=== PATIENT | male | born 1975 | race African-American/Black ===

== ENCOUNTER 2017-08-13 20:40 | Inpatient (IN) | payer OTHER ==
[~2017-08-13] VITALS: Ht 195.6 cm; Wt 133.5 kg
[2017-08-13 20:46] VITALS: BP 148/64; PULSE 81; RESP 18; TEMP 98.4; O2SAT 99
[2017-08-13] MEDS ORDERED: FLUP10TA PO (20:54)
[2017-08-13 20:59] VITALS: PULSE 70; RESP 18; O2SAT 98
[2017-08-13] MEDS ORDERED: SODIUM CHLORIDE 0.9% FLUSH 10 ML FLUSH IVF PRN (21:00)
--- NOTE | 2017-08-13 21:26 | PD ---
HPI Chief Complaint: Cardiac Complaint Time Seen by Provider: 21:08 Travel History International Travel<30 days: No Contact w/Intl Traveler<30days: No Traveled to known affect area: No History of Present Illness HPI Patient comes emergency department complaining of left-sided chest pain described as pressure-like in nature without radiation that began approximately 30 minutes prior to arrival. Patient denies anything making symptoms better. Touching his chest makes the pain worse. Patient denies any trauma, shortness of breath, diaphoresis, nausea, vomiting, back pain, numbness or tingling wear, headache, dizziness, or neck pain. Patient denies a cardiac history or ever having a stress test. Patient received 324 mg of aspirin and 2 sublingual nitro in route by EMS without improvement of symptoms. Patient also complaining of having suicidal ideations. Patient reports history of suicide attempt by ingesting pills in the past. Patient states that the voices in his head telling him to kill himself and his plan was to run into traffic. Patient states that he is on medication for this however the voices still come and go from time to time. Denies any homicidal ideations. Denies anything making symptoms worse. Patient reports he is visiting from out of town and his psychiatrist is in another county. [facility] Past Medical History Schizophrenia: Yes Past Surgical History Surgical History: No Previous Surgery Social History Alcohol Use: No Tobacco Use: Yes (1/2 PPD) Substance Use: No Allergies-Medications (Allergen,Severity, Reaction): Coded Allergies: iodine (Verified Allergy, Severe, Anaphylaxis, 08/13/17) Uncoded Allergies: SEAFOOD (Allergy, Severe, Anaphylaxis, 08/13/17) Reported Meds & Prescriptions Reported Meds & Active Scripts Active Reported Fluphenazine (Fluphenazine HCl) 10 Mg Tab 20 Mg PO BID Review of Systems Except as stated in HPI: all other systems reviewed are Neg Physical Exam Narrative GENERAL: Well-developed, overly nourished, in no acute distress, and non-ill appearing. SKIN: Focused skin assessment warm and dry. HEAD: Atraumatic. Normocephalic. EYES: Pupils equal and round. EOMI. No scleral icterus. No injection or drainage. ENT: No nasal bleeding or discharge. Mucous membranes pink and moist. NECK: Trachea midline. No JVD. Supple. No nuclear rigidity. CARDIOVASCULAR: Regular rate and rhythm. No murmur appreciated. RESPIRATORY: No accessory muscle use. No respiratory distress. Clear to auscultation. Breath sounds equal bilaterally. Patient reports tenderness palpation over left anterior chest wall. MUSCULOSKELETAL: No obvious deformities. No clubbing. No cyanosis. No edema. Full range of motion. NEUROLOGICAL: Awake and alert. No obvious cranial nerve deficits. Motor grossly within normal limits. Normal speech. PSYCHIATRIC: Appropriate mood and affect. Data Data Last Documented VS Vital Signs Date Time Temp Pulse Resp B/P (MAP) Pulse Ox O2 Delivery O2 Flow Rate FiO2 08/13/17 20:59 70 18 98 Room Air 08/13/17 20:46 98.4 148/64 (92) Orders Orders Ckmb (Isoenzyme) Profile (08/13/17 20:54) Complete Blood Count With Diff (08/13/17 20:54) Comprehensive Metabolic Panel (08/13/17 20:54) Magnesium (Mg) (08/13/17 20:54) Prothrombin Time / Inr (Pt) (08/13/17 20:54) Act Partial Throm Time (Ptt) (08/13/17 20:54) Troponin I (08/13/17 20:54) Lipase (08/13/17 20:54) Chest, Single Ap (08/13/17 20:54) Ecg Monitoring (08/13/17 20:54) Iv Access Insert/Monitor (08/13/17 20:54) Oximetry (08/13/17 20:54) Oxygen Administration (08/13/17 20:54) Sodium Chloride 0.9% Flush (Ns Flush) (08/13/17 21:00) Psych Screen (08/13/17 21:08) Drug Screen, Random Urine (08/13/17 21:08) Salicylates (Aspirin) (08/13/17 21:08) Tylenol (Acetaminophen) (08/13/17 21:00) Alcohol (Ethanol) (08/13/17 21:00) Thyroid Stimulating Hormone (08/13/17 21:00) CKMB (08/13/17 21:00) CKMB% (08/13/17 21:00) Labs Laboratory Tests Test 08/13/17 21:00 White Blood Count 9.5 TH/MM3 Red Blood Count 3.99 MIL/MM3 Hemoglobin 11.5 GM/DL Hematocrit 34.0 % Mean Corpuscular Volume 85.2 FL Mean Corpuscular Hemoglobin 28.7 PG Mean Corpuscular Hemoglobin Concent 33.7 % Red Cell Distribution Width 16.6 % Platelet Count 410 TH/MM3 Mean Platelet Volume 8.1 FL Neutrophils (%) (Auto) 42.7 % Lymphocytes (%) (Auto) 45.3 % Monocytes (%) (Auto) 7.0 % Eosinophils (%) (Auto) 4.2 % Basophils (%) (Auto) 0.8 % Neutrophils # (Auto) 4.0 TH/MM3 Lymphocytes # (Auto) 4.3 TH/MM3 Monocytes # (Auto) 0.7 TH/MM3 Eosinophils # (Auto) 0.4 TH/MM3 Basophils # (Auto) 0.1 TH/MM3 CBC Comment DIFF FINAL Differential Comment Prothrombin Time 10.4 SEC Prothromb Time International Ratio 1.0 RATIO Activated Partial Thromboplast Time 26.1 SEC Blood Urea Nitrogen 8 MG/DL Creatinine 0.97 MG/DL Random Glucose 174 MG/DL Total Protein 6.7 GM/DL Albumin 2.9 GM/DL Calcium Level 8.4 MG/DL Magnesium Level 1.6 MG/DL Alkaline Phosphatase 110 U/L Aspartate Amino Transf (AST/SGOT) 16 U/L Alanine Aminotransferase (ALT/SGPT) 22 U/L Total Bilirubin LESS THAN 0.1 MG/DL Sodium Level 142 MEQ/L Potassium Level 3.6 MEQ/L Chloride Level 108 MEQ/L Carbon Dioxide Level 23.0 MEQ/L Anion Gap 11 MEQ/L Estimat Glomerular Filtration Rate 84 ML/MIN Total Creatine Kinase 304 U/L Creatine Kinase MB 2.9 NG/ML Troponin I 0.03 NG/ML Lipase 117 U/L Thyroid Stimulating Hormone 3rd Gen 0.801 uIU/ML Salicylates Level 4.1 MG/DL Acetaminophen Level LESS THAN 2.0 MCG/ML Ethyl Alcohol Level LESS THAN 3 MG/DL MDM Medical Decision Making Medical Screen Exam Complete: Yes Emergency Medical Condition: Yes Interpretation(s) EKG reviewed by Dr. Dia shows sinus rhythm ventricular rate 75. No STEMI. Differential Diagnosis Atypical chest pain, acute coronary syndrome, arrhythmia, musculoskeletal pain, pleurisy, homicidal, suicidal, acute psychosis, metabolic disturbance, pneumonia , pneumothorax Narrative Course Patient seen and examined. Initial laboratory radiological studies were ordered reviewed with the exception of urine drug screen has not been collected yet. Patient signed out to Dr. Dia at the end of my shift pending repeat troponin for final medical clearance. Please see his documentation for final diagnosis and disposition. Ernst Odonnell Aug 13, 2017 21:26
[2017-08-13 21:33] LABS: BASOPHIL # 0.1 TH/MM3 (0-0.2); BASOPHIL % 0.8 % (0.0-2.0); EOSINOPHIL # 0.4 TH/MM3 (0-0.4); EOSINOPHIL % 4.2 % (0.0-4.0); HEMOGLOBIN 11.5 GM/DL (13.0-17.0); LYMPH % 45.3 % (9.0-44.0); LYMPHOCYTE # 4.3 TH/MM3 (1.0-4.8); MEAN CELL VOLUME 85.2 FL (80.0-100.0); MEAN CORPUSCULAR HEMOGLOBIN 28.7 PG (27.0-34.0); MEAN CORPUSCULAR HGB CONC 33.7 % (32.0-36.0); MEAN PLATELET VOLUME 8.1 FL (7.0-11.0); MONOCYTE # 0.7 TH/MM3 (0-0.9); NEUT % 42.7 % (16.0-70.0); PLATELET COUNT 410 TH/MM3 (150-450); RED BLOOD COUNT 3.99 MIL/MM3 (4.50-5.90); RED CELL DISTRIBUTION WIDTH 16.6 % (11.6-17.2); WHITE BLOOD COUNT 9.5 TH/MM3 (4.0-11.0)
[2017-08-13 21:35] LABS: PROTHROMBIN TIME - PATIENT 10.4 SEC (9.8-11.6)
[2017-08-13 21:43] LABS: ALBUMIN 2.9 GM/DL (3.4-5.0); AST (GOT) 16 U/L (15-37); BLOOD UREA NITROGEN 8 MG/DL (7-18); CALCIUM 8.4 MG/DL (8.5-10.1); CHLORIDE 108 MEQ/L (98-107); CREATININE 0.97 MG/DL (0.60-1.30); GLOMERULAR FILTRATION RATE 84 ML/MIN (>89); GLUCOSE,RANDOM 174 MG/DL (74-106); MAGNESIUM 1.6 MG/DL (1.5-2.5); SODIUM (NA) 142 MEQ/L (136-145)
--- NOTE | 2017-08-13 21:45 | RADRPT ---
EXAM DATE/TIME: 08/13/2017 21:13 [facility] COMPARISON: No previous studies available for comparison. INDICATIONS : Chest pain. MEDICAL HISTORY : None. SURGICAL HISTORY : None. ENCOUNTER: Initial ACUITY: 1 day PAIN SCORE: Non-responsive. LOCATION: Bilateral chest FINDINGS: A single view of the chest demonstrates the lungs to be symmetrically aerated without evidence of mas s, infiltrate or effusion. The cardiomediastinal contours are unremarkable. Osseous structures are intact. CONCLUSION: No acute disease. Lyle Villaseñor MD on August 13, 2017 at 21:43 Board Certified Radiologist. This report was verified electronically.
[2017-08-13 21:49] LABS: ACETAMINOPHEN LESS THAN 2.0 MCG/ML (10.0-30.0); ALKALINE PHOSPHATASE 110 U/L (45-117); ALT (GPT) 22 U/L (12-78); TOTAL BILIRUBIN ADULT LESS THAN 0.1 MG/DL (0.2-1.0); TOTAL PROTEIN 6.7 GM/DL (6.4-8.2); TROPONIN I 0.03 NG/ML (0.02-0.05)
--- NOTE | 2017-08-13 22:46 | PD ---
Data Data Last Documented VS Vital Signs Date Time Temp Pulse Resp B/P (MAP) Pulse Ox O2 Delivery O2 Flow Rate FiO2 08/14/17 03:01 63 16 134/74 (94) 96 Room Air 08/13/17 20:46 98.4 Orders Orders Ckmb (Isoenzyme) Profile (08/13/17 20:54) Complete Blood Count With Diff (08/13/17 20:54) Comprehensive Metabolic Panel (08/13/17 20:54) Magnesium (Mg) (08/13/17 20:54) Prothrombin Time / Inr (Pt) (08/13/17 20:54) Act Partial Throm Time (Ptt) (08/13/17 20:54) Troponin I (08/13/17 20:54) Lipase (08/13/17 20:54) Chest, Single Ap (08/13/17 20:54) Ecg Monitoring (08/13/17 20:54) Iv Access Insert/Monitor (08/13/17 20:54) Oximetry (08/13/17 20:54) Oxygen Administration (08/13/17 20:54) Sodium Chloride 0.9% Flush (Ns Flush) (08/13/17 21:00) Psych Screen (08/13/17 21:08) Drug Screen, Random Urine (08/13/17 21:08) Salicylates (Aspirin) (08/13/17 21:08) Tylenol (Acetaminophen) (08/13/17 21:00) Alcohol (Ethanol) (08/13/17 21:00) Thyroid Stimulating Hormone (08/13/17 21:00) CKMB (08/13/17 21:00) CKMB% (08/13/17 21:00) Troponin I (08/13/17 23:35) Electrocardiogram (08/13/17 ) Labs Laboratory Tests Test 08/13/17 21:00 08/14/17 00:03 White Blood Count 9.5 TH/MM3 Red Blood Count 3.99 MIL/MM3 Hemoglobin 11.5 GM/DL Hematocrit 34.0 % Mean Corpuscular Volume 85.2 FL Mean Corpuscular Hemoglobin 28.7 PG Mean Corpuscular Hemoglobin Concent 33.7 % Red Cell Distribution Width 16.6 % Platelet Count 410 TH/MM3 Mean Platelet Volume 8.1 FL Neutrophils (%) (Auto) 42.7 % Lymphocytes (%) (Auto) 45.3 % Monocytes (%) (Auto) 7.0 % Eosinophils (%) (Auto) 4.2 % Basophils (%) (Auto) 0.8 % Neutrophils # (Auto) 4.0 TH/MM3 Lymphocytes # (Auto) 4.3 TH/MM3 Monocytes # (Auto) 0.7 TH/MM3 Eosinophils # (Auto) 0.4 TH/MM3 Basophils # (Auto) 0.1 TH/MM3 CBC Comment DIFF FINAL Differential Comment Prothrombin Time 10.4 SEC Prothromb Time International Ratio 1.0 RATIO Activated Partial Thromboplast Time 26.1 SEC Blood Urea Nitrogen 8 MG/DL Creatinine 0.97 MG/DL Random Glucose 174 MG/DL Total Protein 6.7 GM/DL Albumin 2.9 GM/DL Calcium Level 8.4 MG/DL Magnesium Level 1.6 MG/DL Alkaline Phosphatase 110 U/L Aspartate Amino Transf (AST/SGOT) 16 U/L Alanine Aminotransferase (ALT/SGPT) 22 U/L Total Bilirubin LESS THAN 0.1 MG/DL Sodium Level 142 MEQ/L Potassium Level 3.6 MEQ/L Chloride Level 108 MEQ/L Carbon Dioxide Level 23.0 MEQ/L Anion Gap 11 MEQ/L Estimat Glomerular Filtration Rate 84 ML/MIN Total Creatine Kinase 304 U/L Creatine Kinase MB 2.9 NG/ML Troponin I 0.03 NG/ML 0.03 NG/ML Lipase 117 U/L Thyroid Stimulating Hormone 3rd Gen 0.801 uIU/ML Salicylates Level 4.1 MG/DL Acetaminophen Level LESS THAN 2.0 MCG/ML Ethyl Alcohol Level LESS THAN 3 MG/DL MDM Supervised Visit with CORTNEY: Yes Narrative Course Patient CARE assume for Jas Odonnell PA-C at 2300, this is a 41-year-old male presents emergency department for evaluation of chest pain and psychiatric evaluation. He is fairly low risk for ACS, chest pain started approximately 30 minutes prior to arrival, awaiting a repeat troponin then will discuss with the patient his results. Patient repeat troponin was negative, patient was allowed to sleep in the emergency department for several hours, on reassessment is in no obvious distress, he has had a psychiatric screen and is not inclined to speak to me anymore at this time. He would like to move to the J pod on a voluntary status at this time. He is medically cleared for psychiatric evaluation. Diagnosis Primary Impression: Atypical chest pain Additional Impression: Medical clearance for psychiatric admission Condition: Stable Henrique Dia MD Aug 13, 2017 22:46
[2017-08-13 23:06] VITALS: BP 133/74; PULSE 76; RESP 18; O2SAT 100
[2017-08-14 01:07] VITALS: BP 132/76; PULSE 59; RESP 18; O2SAT 99
[2017-08-14 03:01] VITALS: BP 134/74; PULSE 63; RESP 16; O2SAT 96
[2017-08-14 06:50] VITALS: BP 128/75; PULSE 58; RESP 18; O2SAT 97
--- NOTE | 2017-08-14 07:41 | EKG ---
Date Performed: 08/14/2017 Time Performed: 00:07:59 PTAGE: 41 years EKG: Sinus rhythm LOW QRS VOLTAGE IN PRECORDIAL LEADS SEPTAL MYOCARDIAL INFARCTION ABNORMAL ECG NO PREVIOUS TRACING DOCTOR: Druan Tomas Interpretating Date/Time 08/14/2017 07:40:34
--- NOTE | 2017-08-14 07:55 | EKG ---
Date Performed: 08/13/2017 Time Performed: 20:50:00 PTAGE: 41 years EKG: Sinus rhythm LOW QRS VOLTAGE IN PRECORDIAL LEADS SEPTAL MYOCARDIAL INFARCTION ABNORMAL ECG NO PREVIOUS TRACING DOCTOR: Duran Tomas Interpretating Date/Time 08/14/2017 07:54:36
[2017-08-14 10:42] VITALS: BP 116/59; PULSE 62; RESP 16; TEMP 98.7; O2SAT 100
--- NOTE | 2017-08-14 10:43 | PD ---
History of Present Illness Chief Complaint: Schizophrenia Time Seen by Provider: 10:12 Travel History International Travel<30 Days: No Contact w/Intl Traveler<30days: No Known affected area: No Legal Status Legal Status: Voluntary History of Present Illness: 41 year-old, single, -[place] male presents voluntarily to this facility for self-reported command auditory hallucinations and suicidal ideation. Patient is new to this area, he reports being from [facility], and has never been seen here before. Reviewed electronic medical record, labs and discuss case with staff. Patient' s toxicology screen is negative. Patient was evaluated in his room in J pod with sylvia Castro present. Patient was found sleeping soundly, he awoke to repeated verbal stimulation. He was alert and oriented 4. His appearance is disheveled and he is malodorous. His mood is good and his affect a bit flat. He reports being in this area on vacation, and states that he is originally from [facility]. He advises he has a diagnosis of schizophrenia and has been taking fluphenazine for "many years now". He reports compliance with medication but states that it recently has stopped working on the voices have returned. He did not appear to be internally stimulated. He does endorse suicidal ideation by walking in front of traffic. He denies homicidal ideation and visual hallucinations. He states that he is having command auditory hallucinations which "tell me to kill myself". States that his last suicide attempt was approximately a month ago by overdose. Reports his last inpatient admission was an [facility] approximately the same time. Patient states that he is on SSI and lives in "[place]". [facility] Past Medical History Schizophrenia: Yes Past Surgical History Surgical History: No Previous Surgery Psychiatric History Psychiatric History Reports inpatient admission at facility in [facility], diagnosis of schizophrenia, and rx of fluphenazine. Hx Psychiatric Treatment: STATES SCHIZOPHRENIA History of Inpatient Treatment: No Social History Hx Alcohol Use: No Hx Tobacco Use: Yes (1/2 PPD) Hx Substance Use: No Hx of Substance Use Treatment: No Allergies-Medications (Allergen,Severity, Reaction): Coded Allergies: iodine (Verified Allergy, Severe, Anaphylaxis, 08/13/17) Uncoded Allergies: SEAFOOD (Allergy, Severe, Anaphylaxis, 08/13/17) Reported Meds & Prescriptions Reported Meds & Active Scripts Active Reported Fluphenazine (Fluphenazine HCl) 10 Mg Tab 20 Mg PO BID Mental Status Examination Appearance: Dirty, Disheveled, Malodorous Consciousness: Asleep Orientation: x4 Motor Activity: Normal gait Speech: Unremarkable Language: Adequate Fund of Knowledge: Adequate Attention and Concentration: Adequate Memory: Unremarkable Mood: Appropriate Affect: Flat Thought Process & Associations: Intact Thought Content: Hallucinations Hallucination Type: Auditory (per patient, command to kill himself) Delusion Type: None Suicidal Ideation: Yes Suicidal Plan: Yes ("walk in traffic") Suicidal Intention: No Homicidal Ideation: No Homicidal Plan: No Homicidal Intention: No Insight: Fair Judgment: Impulsive MDM Medical Decision Making Medical Record Reviewed: Yes Assessment/Plan This is a 41-year old, single -[place] male who presents voluntarily for reported command auditory hallucinations and suicidal ideation. He is unknown to this facility. He reports being "on vacation from [facility]", and states that he has a history of schizophrenia with multiple inpatient admissions. The most recent being "about a month ago" . He additionally reports that he has been compliant with his fluphenazine, but reports that it is no longer effective. His mood is good, affect is flat. He is alert and oriented X 4. There is no indication of internal stimulation. No blatant thought blocking observed. His memory appears to be intact. His thought process appropriate . Patient does however endorse suicidal ideation by "walking into traffic". His toxicology screen is negative. He denies homicidal ideation or a history of being violent, as well as visual hallucinations. I can elicit no delusional material. Due to the patient's continued endorsement of SI, and out of an abundance of caution since he is unknown to us, he will be admitted voluntarily for further evaluation and treatment as deemed necessary. Request HC Surrog/Guard Advoc?: No Orders Orders Ckmb (Isoenzyme) Profile (08/13/17 20:54) Complete Blood Count With Diff (08/13/17 20:54) Comprehensive Metabolic Panel (08/13/17 20:54) Magnesium (Mg) (08/13/17 20:54) Prothrombin Time / Inr (Pt) (08/13/17 20:54) Act Partial Throm Time (Ptt) (08/13/17 20:54) Troponin I (08/13/17 20:54) Lipase (08/13/17 20:54) Chest, Single Ap (08/13/17 20:54) Ecg Monitoring (08/13/17 20:54) Iv Access Insert/Monitor (08/13/17 20:54) Oximetry (08/13/17 20:54) Oxygen Administration (08/13/17 20:54) Sodium Chloride 0.9% Flush (Ns Flush) (08/13/17 21:00) Psych Screen (08/13/17 21:08) Drug Screen, Random Urine (08/13/17 21:08) Salicylates (Aspirin) (08/13/17 21:08) Tylenol (Acetaminophen) (08/13/17 21:00) Alcohol (Ethanol) (08/13/17 21:00) Thyroid Stimulating Hormone (08/13/17 21:00) CKMB (08/13/17 21:00) CKMB% (08/13/17 21:00) Troponin I (08/13/17 23:35) Electrocardiogram (08/13/17 ) Diet Regular Basic (08/14/17 Breakfast) Electrocardiogram (08/13/17 20:50) Diet Regular Basic (08/14/17 Lunch) Results Vital Signs Date Time Temp Pulse Resp B/P (MAP) Pulse Ox O2 Delivery O2 Flow Rate FiO2 08/14/17 06:50 58 18 128/75 (92) 97 Room Air 08/14/17 03:01 63 16 134/74 (94) 96 Room Air 08/14/17 01:07 59 18 132/76 (94) 99 Room Air 08/13/17 23:06 76 18 133/74 (93) 100 Room Air 08/13/17 20:59 70 18 98 Room Air 08/13/17 20:58 99 Room Air 08/13/17 20:54 71 08/13/17 20:46 98.4 81 18 148/64 (92) 99 Laboratory Tests Test 08/13/17 21:00 08/14/17 00:03 08/14/17 05:30 White Blood Count 9.5 Red Blood Count 3.99 Hemoglobin 11.5 Hematocrit 34.0 Mean Corpuscular Volume 85.2 Mean Corpuscular Hemoglobin 28.7 Mean Corpuscular Hemoglobin Concent 33.7 Red Cell Distribution Width 16.6 Platelet Count 410 Mean Platelet Volume 8.1 Neutrophils (%) (Auto) 42.7 Lymphocytes (%) (Auto) 45.3 Monocytes (%) (Auto) 7.0 Eosinophils (%) (Auto) 4.2 Basophils (%) (Auto) 0.8 Neutrophils # (Auto) 4.0 Lymphocytes # (Auto) 4.3 Monocytes # (Auto) 0.7 Eosinophils # (Auto) 0.4 Basophils # (Auto) 0.1 CBC Comment DIFF FINAL Differential Comment Prothrombin Time 10.4 Prothromb Time International Ratio 1.0 Activated Partial Thromboplast Time 26.1 Blood Urea Nitrogen 8 Creatinine 0.97 Random Glucose 174 Total Protein 6.7 Albumin 2.9 Calcium Level 8.4 Magnesium Level 1.6 Alkaline Phosphatase 110 Aspartate Amino Transf (AST/SGOT) 16 Alanine Aminotransferase (ALT/SGPT) 22 Total Bilirubin LESS THAN 0.1 Sodium Level 142 Potassium Level 3.6 Chloride Level 108 Carbon Dioxide Level 23.0 Anion Gap 11 Estimat Glomerular Filtration Rate 84 Total Creatine Kinase 304 Creatine Kinase MB 2.9 Troponin I 0.03 0.03 Lipase 117 Thyroid Stimulating Hormone 3rd Gen 0.801 Salicylates Level 4.1 Acetaminophen Level LESS THAN 2.0 Ethyl Alcohol Level LESS THAN 3 Urine Opiates Screen NEG Urine Barbiturates Screen NEG Urine Amphetamines Screen NEG Urine Benzodiazepines Screen NEG Urine Cocaine Screen NEG Urine Cannabinoids Screen NEG Diagnosis Primary Impression: Schizophrenia Admitting Information Admitting Physician Requests: Admit Condition: Stable Rosa Montemayor Aug 14, 2017 10:43
[2017-08-14] MEDS ORDERED: ALUMINUM/MAGNESIUM/SIMETH 30 ML CUP PO PRN (10:45)
[2017-08-14] MEDS ORDERED: MAGNESIUM HYDROXIDE SUSP 30 ML CUP PO PRN (10:45)
[2017-08-14] MEDS ORDERED: ACETAMINOPHEN 325 MG TAB PO PRN (10:45)
[2017-08-14] MEDS: NICOTINE 21 MG/24 HR PATCH T-DERMAL SCH (12:00)
[2017-08-14 12:20] VITALS: BP 132/86; PULSE 73; RESP 17; TEMP 97.3; O2SAT 98
[2017-08-15 05:42] VITALS: BP 142/67; PULSE 66; RESP 18; TEMP 97.9; O2SAT 98
[2017-08-15] MEDS: NICOTINE 21 MG/24 HR PATCH T-DERMAL SCH (08:56)
[2017-08-15] MEDS: REMOVE OLD PATCH T-DERMAL SCH (09:00)
[2017-08-15] MEDS ORDERED: NICOTINE 21 MG/24 HR PATCH T-DERMAL PRN (10:45)
--- NOTE | 2017-08-15 10:45 | HHI.HP ---
Provisional Diagnosis Admission Date Aug 14, 2017 at 10:49 [place] I. 1. Schizophrenia, undifferentiated type, acute exacerbation Suspect component of symptom exaggeration/malingering, possibly for prison [place] II. Deferred Certification of Person's Competence To Provide Express and Informed Consent I have personally examined Wilian Garcia , a person being served at [facility] on, Aug 15, 2017 10:42. Express and informed consent means consent voluntarily given in writing, by a competent person, after sufficient explanation and disclosure of the subject matter involved to enable the person to make a knowing and willful decision without any element of force, fraud, deceit, duress, or other form of constraint or coercion. This person is 18 years of age or older, is not now known to be incompetent to consent to treatment with a guardian advocate, and does not have a health care surrogate or proxy currently making medical treatment decisions. I have found this person to be one of the following: [x] Competent to provide express and informed consent, as defined above, for voluntary admission to this facility and is competent to provide express and informed consent for treatment. He/she has the consistent capacity to make well reasoned, willful, and knowing decisions concerning his or her medical or mental health treatment. The person fully and consistently understands the purpose of the admission for examination/placement and is fully capable of personally exercising all rights assured [place] Incompetent to provide express and informed consent to voluntary admission, and this is incompetent to provide express and informed consent to treatment. The person must be transferred to involuntary status and a petition for a guardian advocate filed with the Circuit Court. [] Refusing to provide express and informed consent to voluntary admission but is competent to provide express and informed consent for treatment. The person must be discharged or transferred to involuntary status. Form shall be completed within 24 hours of a person's arrival at the receiving facility and filed in the clinical record of each person: 1. Admitted on a voluntary basis 2. Permitted to provide express and informed consent to his/her own treatment 3. Allowed to transfer from involuntary to voluntary status 4. Prior to permitting a person to consent to his or her own treatment after having been previously found incompetent to consent to treatment. History of Present Illness Capacity: Has Capacity Psych Chief Complaint: CAH to self-injure HPI Mr. Garcia is a 41-year-old male with a reported history of schizophrenia who presented to the emergency department voluntarily complaining of chest pain and suicidal ideation. Patient was medically cleared for his physical complaints and was seen in the ED by the psychiatric nurse practitioner. Reviewing the electronic medical record, I note this is patient's first visit to [facility]. Patient seen and examined with nurse. Chart reviewed. Case discussed with nursing staff. On my examination today, patient presents as irritable and terse. He is disheveled and malodorous. There is an undercurrent of manipulation in his presentation, and some degree of symptom exaggeration or malingering is suspected. He reports that he came up to [facility] for vacation from [facility] 2 days ago and at the same time developed onset of command auditory hallucinations. He reports that these hallucinations are "a pain" and tell him to kill himself by running into traffic. Patient cannot describe the quality of these voices in any detail except to say that they command him to self injure in the way described. He reports suicidal ideation in response to the voices with plan as they command. He contracts for safety on the inpatient unit. He denies homicidal ideation. No depressive or hypomanic/manic symptoms. I can elicit no paranoia, no ideas of reference, no other delusional material. Sleep and appetite are reportedly fair. Remainder of the psychiatric ROS is negative. No acute physical complaints. No complaints of chest pain at this time. Past psychiatric history: The patient reports a history of schizophrenia. He follows with a mental health provider in [facility] and is reportedly prescribed Prolixin 20 mg twice daily and has been at stable doses for several years. He reports that he was admitted a few months ago at a hospital in [facility]. He reports 1 previous suicide attempt by overdose. Family history: The patient denies a family history of mental illness or suicide. Chemical dependency history: The patient denies any abuse of drugs or alcohol. Social history: Patient reports that he lives alone in an apartment in [facility]. He came up to [facility] for vacation. He is single with no children. He has high school educated. He collects SSI. He denies any or legal history. He denies any access to guns or firearms. He denies any history of abuse. Past Family Social History Coded Allergies: iodine (Verified Allergy, Severe, Anaphylaxis, 08/13/17) Uncoded Allergies: SEAFOOD (Allergy, Severe, Anaphylaxis, 08/13/17) Past Medical History Patient denies any past medical history and says that he takes no general medical medications. Reported Medications Fluphenazine (Fluphenazine) 10 Mg Tab, 20 MG PO BID 08/13/17 Current Medications Medications (Trade) Dose Ordered Sig/Dirk Route Start Time Stop Time Status Last Admin (NS Flush) 2 ml UNSCH PRN IVF 08/13/17 21:00 (Tylenol) 650 mg Q4H PRN PO 08/14/17 10:45 (Milk Of Magnesia Liq) 30 ml DAILY PRN PO 08/14/17 10:45 (Mag-Al Plus Susp Liq) 30 ml Q6H PRN PO 08/14/17 10:45 (Habitrol 21 Mg Patch.24 Hr) 1 patch DAILY T-DERMAL 08/14/17 12:00 Miscellaneous Information 1 DAILY T-DERMAL 08/15/17 09:00 Patient's Strengths (min. 2) In a monitored setting. Verbally fluent. Physical Exam Physical exam completed by ED provider. On my examination today, the patient appears to be in no acute physical distress. No motor abnormalities noted. Labs and vitals reviewed: Vital Signs Vital Signs Date Time Temp Pulse Resp B/P (MAP) Pulse Ox O2 Delivery O2 Flow Rate FiO2 08/15/17 05:42 97.9 66 18 142/67 (92) 98 08/14/17 10:42 Room Air I/O 08/15/17 08/15/17 08/15/17 07:59 15:59 23:59 Intake Total 480 ml Balance 480 ml Mental Status Examination Appearance: Dirty, Disheveled, Malodorous Consciousness: Alert Orientation: x4 Motor Activity: Other (No motor abnormalities noted) Speech: Unremarkable Language: Adequate Fund of Knowledge: Adequate Attention and Concentration: Adequate Memory: Unremarkable Mood: Irritable Affect: Irritable Thought Process & Associations: Intact, Logical, Linear Thought Content: Hallucinations Hallucination Type: Auditory (Reported command auditory hallucinations to self injure) Delusion Type: None Suicidal Ideation: Yes Suicidal Plan: Yes (Run into traffic) Suicidal Intention: No (Contracts for safety on the inpatient unit) Homicidal Ideation: No Homicidal Plan: No Homicidal Intention: No Insight: Fair Judgment: Impulsive Assessment & Plan Problem List: (1) Schizophrenia ICD Codes: F20.9 - Schizophrenia, unspecified Status: Acute Assessment & Plan 41-year-old male with psychiatric history as detailed above who presents voluntarily with complaints of command auditory hallucinations and suicidal ideation. Patient reports isolated command auditory hallucinations with no associated hallucinatory or delusional material. There is a distinctively manipulative, possibly malingered quality to his symptom report. He reports that he has been on stable doses of Prolixin for some time. I will plan to admit the patient to the inpatient unit for observation and medication adjustment. Admitted inpatient. Voluntary status. Titrate Prolixin to 25 mg twice daily to target reported psychotic symptoms. EKGs reviewed and QTc wnl. I did discuss with the patient alternative management strategies such as transition to a different antipsychotic or addition of a second antipsychotic, but the patient prefers the strategy that we are pursuing after a discussion of the R/B/ A. Patient refused labs, try to check HgbA1c to follow up hyperglycemia, lipid panel, BMP and CBC tomorrow morning. Vitals every shift. Counselor to see. Disposition planning. Estimated length of stay: 3-5 days. Discharge Planning Pending med adjustment. Request HC Surrog/Guard Advoc?: No Problem Qualifiers (1) Schizophrenia: Qualified Codes: F20.3 - Undifferentiated schizophrenia Carmelo Han MD Aug 15, 2017 10:44
[2017-08-15] MEDS ORDERED: PILL SPLITTER OTHER PRN (11:00)
--- NOTE | 2017-08-15 16:14 | PD.CONS ---
HPI Service [facility] Hospitalists Consult Requested By Dr. Han Reason for Consult Chest pain Primary Care Physician No Primary Care Physician Diagnoses: (1) Schizophrenia (2) Medical clearance for psychiatric admission (3) Atypical chest pain History of Present Illness The patient is 41-year-old -[place] male with psychiatric medical history who is seen psychiatric unit for further evaluation treatment. The hospitalist is consulted for evaluation of chest pain. The patient however is telling me he does not have any chest pain and he feels good. He does not have any shortness of breath, nausea, diaphoresis. No diarrhea or constipation. Says he feels good and has no complaints at this time. Review of Systems Except as stated in HPI: all other systems reviewed are Neg Past Family Social History Allergies: Coded Allergies: iodine (Verified Allergy, Severe, Anaphylaxis, 08/13/17) Uncoded Allergies: SEAFOOD (Allergy, Severe, Anaphylaxis, 08/13/17) Past Medical History Denies having any medical problems Past Surgical History Denies surgical history Reported Medications Reported Meds & Active Scripts Active Reported Fluphenazine (Fluphenazine HCl) 10 Mg Tab 20 Mg PO BID Family History Says his family is healthy and does not know medical problems runs in his family Social History Denies alcohol use, illicit drug use or tobacco use. Physical Exam Vital Signs Vital Signs Date Time Temp Pulse Resp B/P (MAP) Pulse Ox O2 Delivery O2 Flow Rate FiO2 08/15/17 05:42 97.9 66 18 142/67 (92) 98 Physical Exam GENERAL: This is a well-nourished, well-developed patient, in no apparent distress. SKIN: No rashes, ecchymoses or lesions. Cool and dry. HEAD: Atraumatic. Normocephalic. No temporal or scalp tenderness. EYES: Pupils equal round and reactive. Extraocular motions intact. No scleral icterus. No injection or drainage. ENT: Nose without bleeding, purulent drainage or septal hematoma. Throat without erythema, tonsillar hypertrophy or exudate. Uvula midline. Airway patent. NECK: Trachea midline. No JVD or lymphadenopathy. Supple, nontender, no meningeal signs. CARDIOVASCULAR: Regular rate and rhythm without murmurs, gallops, or rubs. RESPIRATORY: Clear to auscultation. Breath sounds equal bilaterally. No wheezes , rales, or rhonchi. GASTROINTESTINAL: Abdomen soft, non-tender, nondistended. No hepato-splenomegaly , or palpable masses. No guarding. MUSCULOSKELETAL: Extremities without clubbing, cyanosis, or edema. No joint tenderness, effusion, or edema noted. No calf tenderness. Negative Homans sign bilaterally. NEUROLOGICAL: Awake and alert. Cranial nerves II through XII intact. Motor and sensory grossly within normal limits. Five out of 5 muscle strength in all muscle groups. Normal speech. Result Diagram: 08/13/17 2100 08/13/172099 Imaging Last Impressions Chest X-Ray 08/13/172053 Signed Impressions: Service Date/Time: Sunday, August 13, 2017 21:13 - CONCLUSION: No acute disease. Llye Villaseñor MD Assessment and Plan Assessment and Plan Schizophrenia management per psychiatry Chest pain. Patient does not complain of any chest pain at this time says he never had chest pain. Is refusing any workup. DVT prophylaxis ambulating Discussed with the patient, nurse Will sign off at this time. Reconsult as needed. Problem Qualifiers (1) Schizophrenia: Qualified Codes: F20.3 - Undifferentiated schizophrenia Laurita Johnson MD Aug 15, 2017 16:14
[2017-08-16 05:53] VITALS: BP 131/76; PULSE 66; RESP 18; TEMP 98.6; O2SAT 98
[2017-08-16] MEDS: REMOVE OLD PATCH T-DERMAL SCH (09:00)
[2017-08-16 10:51] LABS: BICARBONATE 27.6 MEQ/L (21.0-32.0); BLOOD UREA NITROGEN 7 MG/DL (7-18); CALCIUM 8.8 MG/DL (8.5-10.1); CHLORIDE 106 MEQ/L (98-107); CHOLESTEROL 166 MG/DL (120-200); CREATININE 1.02 MG/DL (0.60-1.30); GLOMERULAR FILTRATION RATE 97 ML/MIN (>89); GLUCOSE,RANDOM 135 MG/DL (74-106); SODIUM (NA) 140 MEQ/L (136-145); TRIGLYCERIDES 226 MG/DL (42-150)
[2017-08-16 10:54] LABS: CHOLESTEROL/ HDL RATIO 6.48 RATIO; HDL CHOLESTEROL 25.6 MG/DL (40.0-60.0); LDL CHOLESTEROL 95 MG/DL (0-99)
[2017-08-16 11:27] LABS: AUTOMATED NEUTROPHIL # 3.9 TH/MM3 (1.8-7.7); BASOPHIL # 0.1 TH/MM3 (0-0.2); BASOPHIL % 0.9 % (0.0-2.0); EOSINOPHIL # 0.3 TH/MM3 (0-0.4); EOSINOPHIL % 3.3 % (0.0-4.0); HEMATOCRIT 37.9 % (39.0-51.0); HEMOGLOBIN 12.8 GM/DL (13.0-17.0); LYMPH % 36.6 % (9.0-44.0); LYMPHOCYTE # 2.9 TH/MM3 (1.0-4.8); MEAN CELL VOLUME 86.5 FL (80.0-100.0); MEAN CORPUSCULAR HEMOGLOBIN 29.2 PG (27.0-34.0); MEAN CORPUSCULAR HGB CONC 33.8 % (32.0-36.0); MONO % 9.3 % (0.0-8.0); MONOCYTE # 0.7 TH/MM3 (0-0.9); NEUT % 49.9 % (16.0-70.0); PLATELET COUNT 439 TH/MM3 (150-450); RED BLOOD COUNT 4.38 MIL/MM3 (4.50-5.90); RED CELL DISTRIBUTION WIDTH 16.7 % (11.6-17.2); WHITE BLOOD COUNT 7.9 TH/MM3 (4.0-11.0)
--- NOTE | 2017-08-16 12:53 | HHI.PYPN ---
Subjective Chief Complaint: CAH to self-injure Remarks Patient seen and examined with nurse. Chart reviewed. Case discussed with nursing staff. No behavioral issues overnight. Patient noted to seclude in room and participate little and unit activities besides meals. On my examination today, presentation remains fairly manipulative and malingered. He continues to endorse command auditory hallucinations to kill himself. These occur in isolation with no other psychiatric symptoms to speak of. He does not appear internally stimulated. He denies any suicidal ideation presently. He is less irritable and dysphoric today. His grooming is improved. No side effects from medications. No physical complaints. Review of Systems Except as stated in HPI: all other systems reviewed are Neg Mental Status Examination Appearance: Dirty, Disheveled, Malodorous Consciousness: Alert Orientation: x4 Motor Activity: Other (No hand tremor, no dystonia, no dyskinesia. No other motor abnormalities noted.) Speech: Unremarkable Language: Adequate Fund of Knowledge: Adequate Attention and Concentration: Adequate Memory: Unremarkable Mood: Irritable Affect: Irritable Thought Process & Associations: Intact, Logical, Linear Thought Content: Hallucinations Hallucination Type: Auditory (Reported command auditory hallucinations to self injure. Patient does not appear internally stimulated) Delusion Type: None Suicidal Ideation: No Suicidal Plan: No Suicidal Intention: No Homicidal Ideation: No Homicidal Plan: No Homicidal Intention: No Insight: Fair Judgment: Impulsive Results Labs Test 08/16/17 09:35 White Blood Count 7.9 TH/MM3 Red Blood Count 4.38 MIL/MM3 Hemoglobin 12.8 GM/DL Hematocrit 37.9 % Mean Corpuscular Volume 86.5 FL Mean Corpuscular Hemoglobin 29.2 PG Mean Corpuscular Hemoglobin Concent 33.8 % Red Cell Distribution Width 16.7 % Platelet Count 439 TH/MM3 Mean Platelet Volume 8.0 FL Neutrophils (%) (Auto) 49.9 % Lymphocytes (%) (Auto) 36.6 % Monocytes (%) (Auto) 9.3 % Eosinophils (%) (Auto) 3.3 % Basophils (%) (Auto) 0.9 % Neutrophils # (Auto) 3.9 TH/MM3 Lymphocytes # (Auto) 2.9 TH/MM3 Monocytes # (Auto) 0.7 TH/MM3 Eosinophils # (Auto) 0.3 TH/MM3 Basophils # (Auto) 0.1 TH/MM3 CBC Comment DIFF FINAL Differential Comment Blood Urea Nitrogen 7 MG/DL Creatinine 1.02 MG/DL Random Glucose 135 MG/DL Calcium Level 8.8 MG/DL Sodium Level 140 MEQ/L Potassium Level 3.8 MEQ/L Chloride Level 106 MEQ/L Carbon Dioxide Level 27.6 MEQ/L Anion Gap 6 MEQ/L Estimat Glomerular Filtration Rate 97 ML/MIN Triglycerides Level 226 MG/DL Cholesterol Level 166 MG/DL LDL Cholesterol 95 MG/DL HDL Cholesterol 25.6 MG/DL Cholesterol/HDL Ratio 6.48 RATIO Labs reviewed. Vitals/IOs Vital Signs Date Time Temp Pulse Resp B/P (MAP) Pulse Ox O2 Delivery O2 Flow Rate FiO2 08/16/17 05:53 98.6 66 18 131/76 (94) 98 08/14/17 10:42 Room Air Assessment & Plan Problem List: (1) Schizophrenia ICD Codes: F20.9 - Schizophrenia, unspecified Status: Acute Assessment & Plan I continue to have a high degree of suspicion for malingering in this patient. He does continue to report command auditory hallucinations but is less irritable and dysphoric today. I have discussed pharmacotherapeutic options for management of this reported symptom including no change, titration of Prolixin and addition of a second antipsychotic. We will add Abilify at low dose after discussion of R/B/A. Continue to monitor on inpatient unit through the weekend. Continue other care as ordered. Justification for Cont. Inpt. Med changes. Discharge Planning Anticipate discharge Saturday. Request HC Surrog/Guard Advoc?: No Problem Qualifiers (1) Schizophrenia: Qualified Codes: F20.3 - Undifferentiated schizophrenia Carmelo Han MD Aug 16, 2017 12:53
[2017-08-16 16:47] LABS: HEMOGLOBIN A1C 7.2 % (4.3-6.0)
[2017-08-16 17:32] VITALS: BP 139/63; PULSE 78; RESP 17; TEMP 98.7; O2SAT 98
[2017-08-17 06:18] VITALS: BP 155/74; PULSE 84; RESP 18; TEMP 98.5; O2SAT 98
[2017-08-17] MEDS: ARIPiprazole 5 MG TAB PO SCH (08:56)
[2017-08-17] MEDS: REMOVE OLD PATCH T-DERMAL SCH (08:57)
--- NOTE | 2017-08-17 15:02 | HHI.PYPN ---
Subjective Chief Complaint: CAH to self-injure Remarks Reviewed electronic medical record and discussed case with staff. Follow-up evaluation in patient's room with nurse present. Patient was found lying asleep in his bed and awoke to verbal stimuli. He reports that he feels "all right". States that he had a good night sleep and that his appetite is been good. He denies suicidal ideation, homicidal ideation, visual hallucinations. He does claim to have auditory hallucinations which tell him to harm himself however he is not internally stimulated, and gives no indication of thought blocking. Mental Status Examination Appearance: Dirty, Disheveled, Malodorous Consciousness: Alert Orientation: x4 Motor Activity: Other (No hand tremor, no dystonia, no dyskinesia. No other motor abnormalities noted.) Speech: Unremarkable Language: Adequate Fund of Knowledge: Adequate Attention and Concentration: Adequate Memory: Unremarkable Mood: Irritable Affect: Irritable Thought Process & Associations: Intact, Logical, Linear Thought Content: Hallucinations Hallucination Type: Auditory (Reported command auditory hallucinations to self injure. Patient does not appear internally stimulated) Delusion Type: None Suicidal Ideation: No Suicidal Plan: No Suicidal Intention: No Homicidal Ideation: No Homicidal Plan: No Homicidal Intention: No Insight: Fair Judgment: Impulsive Results Vitals/IOs Vital Signs Date Time Temp Pulse Resp B/P (MAP) Pulse Ox O2 Delivery O2 Flow Rate FiO2 08/17/17 06:18 98.5 84 18 155/74 (101) 98 08/14/17 10:42 Room Air Assessment & Plan Problem List: (1) Schizophrenia ICD Codes: F20.9 - Schizophrenia, unspecified Status: Acute Assessment & Plan Estimated LOS: Patient continues to endorse command, derogatory, auditory hallucinations although, there is no apparent internal stimulation noted. We will continue with treatment as planned. Justification for Cont. Inpt. Moving patient to a lower level of care would likely result in decompensation. Request HC Surrog/Guard Advoc?: No Problem Qualifiers (1) Schizophrenia: Qualified Codes: F20.3 - Undifferentiated schizophrenia Rosa Montemayor Aug 17, 2017 15:02
[2017-08-17 16:44] VITALS: BP 137/76; PULSE 69; RESP 18; TEMP 97.4; O2SAT 97
[2017-08-18 06:13] VITALS: BP 135/78; PULSE 84; RESP 18; TEMP 98.2; O2SAT 97
[2017-08-18] MEDS: REMOVE OLD PATCH T-DERMAL SCH (09:00)
[2017-08-18] MEDS: ARIPiprazole 5 MG TAB PO SCH (09:41)
--- NOTE | 2017-08-18 10:34 | HHI.PYPN ---
Subjective Chief Complaint: CAH to self-injure Remarks Reviewed electronic medical record discussed case with staff. Follow-up was conducted in patient's room. Patient found lying in his bed awake, alert, and oriented 4. Patient reports that he slept and ate well. When questioned as to how much time he spinning in his room patient reports that he has gone out to the day room to watch TV from time to time. He denies feeling suicidal, homicidal, and having visual hallucinations. He still endorses that he has command auditory hallucinations which tell him to hurt himself. However, once again patient appears to be in no distress. There is no indication of internal stimuli. Mental Status Examination Appearance: Dirty, Disheveled, Malodorous Consciousness: Alert Orientation: x4 Motor Activity: Other (No hand tremor, no dystonia, no dyskinesia. No other motor abnormalities noted.) Speech: Unremarkable Language: Adequate Fund of Knowledge: Adequate Attention and Concentration: Adequate Memory: Unremarkable Mood: Appropriate Affect: Appropriate Thought Process & Associations: Intact, Logical, Linear Thought Content: Appropriate, Hallucinations Hallucination Type: Auditory (Reported command auditory hallucinations to self injure. Patient does not appear internally stimulated) Delusion Type: None Suicidal Ideation: No Suicidal Plan: No Suicidal Intention: No Homicidal Ideation: No Homicidal Plan: No Homicidal Intention: No Insight: Fair Judgment: Impulsive Results Vitals/IOs Vital Signs Date Time Temp Pulse Resp B/P (MAP) Pulse Ox O2 Delivery O2 Flow Rate FiO2 08/18/17 06:13 98.2 84 18 135/78 (97) 97 08/14/17 10:42 Room Air Assessment & Plan Problem List: (1) Schizophrenia ICD Codes: F20.9 - Schizophrenia, unspecified Status: Acute Assessment & Plan Estimated LOS: Patient does not appear to be in any distress nor does he appear to be internally stimulated. Questionable as to whether he is malingering. Justification for Cont. Inpt. Patient still endorsing command auditory hallucinations. Request HC Surrog/Guard Advoc?: No Problem Qualifiers (1) Schizophrenia: Qualified Codes: F20.3 - Undifferentiated schizophrenia Rosa Montemayor Aug 18, 2017 10:34
[2017-08-18 16:39] VITALS: BP 148/96; PULSE 84; RESP 17; TEMP 97.8; O2SAT 99
[2017-08-18 17:10] VITALS: BP 148/96; PULSE 84; RESP 17; TEMP 97.8; O2SAT 98
[2017-08-19] MEDS: ARIPiprazole 5 MG TAB PO SCH (08:44)
[2017-08-19] MEDS: REMOVE OLD PATCH T-DERMAL SCH (09:00)
[2017-08-19] MEDS ORDERED: ARIP1TAB11 PO (10:53)
[2017-08-19] MEDS ORDERED: FLUP10TA PO (10:53)
--- NOTE | 2017-08-19 10:53 | HHI.DS ---
Psychiatry Discharge Summary Inpatient Psychiatric care?: Yes Advance Directive: No Reason Not Provided: Due to Patient Condition Mental Health AdvanceDirective: No Health Care Proxy: No Admission Admission Date Aug 14, 2017 at 10:49 Admission Diagnosis: (1) Schizophrenia ICD Code: F20.9 - Schizophrenia, unspecified Brief History Mr. Garcia is a 41-year-old male with a reported history of schizophrenia who presented to the emergency department voluntarily complaining of chest pain and suicidal ideation. Patient was medically cleared for his physical complaints and was seen in the ED by the psychiatric nurse practitioner. Reviewing the electronic medical record, I note this is patient's first visit to [place]. Patient seen and examined with nurse. Chart reviewed. Case discussed with nursing staff. On my examination today, patient presents as irritable and terse. He is disheveled and malodorous. There is an undercurrent of manipulation in his presentation, and some degree of symptom exaggeration or malingering is suspected. He reports that he came up to [facility] for vacation from [facility] 2 days ago and at the same time developed onset of command auditory hallucinations. He reports that these hallucinations are "a pain" and tell him to kill himself by running into traffic. Patient cannot describe the quality of these voices in any detail except to say that they command him to self injure in the way described. He reports suicidal ideation in response to the voices with plan as they command. He contracts for safety on the inpatient unit. He denies homicidal ideation. No depressive or hypomanic/manic symptoms. I can elicit no paranoia, no ideas of reference, no other delusional material. Sleep and appetite are reportedly fair. Remainder of the psychiatric ROS is negative. No acute physical complaints. No complaints of chest pain at this time. Past psychiatric history: The patient reports a history of schizophrenia. He follows with a mental health provider in [facility] and is reportedly prescribed Prolixin 20 mg twice daily and has been at stable doses for several years. He reports that he was admitted a few months ago at a hospital in [facility]. He reports 1 previous suicide attempt by overdose. Family history: The patient denies a family history of mental illness or suicide. Chemical dependency history: The patient denies any abuse of drugs or alcohol. Social history: Patient reports that he lives alone in an apartment in [facility]. He came up to [facility] for vacation. He is single with no children. He has high school educated. He collects SSI. He denies any or legal history. He denies any access to guns or firearms. He denies any history of abuse. Tobacco Use In Past 30 Days: 5 or More Cigarettes/Day Alcohol Use: Never Hospital Course Patient was admitted to a locked, inpatient psychiatric unit. The general medical consultation was obtained. Appropriate precautions were in place throughout patient's hospital stay. Patient was seen and examined on the unit by psychiatry and also visited by counselor. Psychotropic medications were adjusted. Patient tolerated medications well without side effects. There was no evidence of any suicidality or homicidality on the patient unit despite extended observation. There was no evidence of significant self-care deficit. The patient was no behavioral problem but participated little in unit activities , coming out chiefly for meals. His psychiatric symptoms seemed malingered with the benefit of observation. Collateral from patient's insurer indicates the patient has been hospitalized at multiple different psychiatric units throughout the state since the beginning of this year alone. On the day of discharge: Patient seen and examined. Chart reviewed. Case discussed with nursing staff. No behavioral issues noted overnight. Case discussed with counselor. On my exam today, patient denies any suicidal or homicidal ideation , intent or plan. He does not describe any depressive or hypomanic/manic symptoms. He continues to report some auditory hallucinations but does not report any command auditory hallucinations. He admits that he cannot remember the last time that he was free of hallucinations. He once again does not appear internally stimulated. I can elicit no delusional material. He seems considerably calmer and more at ease versus admission. He denies side effects from medications. He has no physical complaints. Suicide and violence risk assessment on day of discharge both suggest lower imminent risk from mental illness and the patient's level of function is adequate for outpatient care. Patient has maximized benefit from this inpatient psychiatric hospital stay and will be discharged today with psychiatric follow-up as arranged by counselor. Patient is also to follow up with primary care. I have counseled the patient to abstain from any substances of abuse. I have counseled the patient to return to the psychiatric emergency room for any concerning psychiatric symptoms as part of a general safety plan. Malingering, chiefly for fpc, is suspected in the present case. It is possible that the patient may continue to malinger psychiatric symptoms or even make some sort of gesture to facilitate readmission to the inpatient unit. However, this is not a valid reason to retain the patient now, and in fact it would be counter-therapeutic to do so. I have prescribed patient's psychotropics in the smallest quantity consistent with good care to reduce the risk of gestural overdose. Results Blood Pressure 148 / 96 Vital Signs Date Time Temp Pulse Resp B/P (MAP) Pulse Ox O2 Delivery O2 Flow Rate FiO2 08/18/17 17:10 97.8 84 17 148/96 (113) 98 Laboratory Results Test 08/16/17 09:35 Cholesterol Level 166 MG/DL (120-200) HDL Cholesterol 25.6 MG/DL (40.0-60.0) Hemoglobin A1c 7.2 % (4.3-6.0) LDL Cholesterol 95 MG/DL (0-99) Triglycerides Level 226 MG/DL (42-150) Summary of Procedures None done Imaging Last Impressions Chest X-Ray 08/13/[id number] Signed Impressions: Service Date/Time: Sunday, August 13, 2017 21:13 - CONCLUSION: No acute disease. Lyle Villaseñor MD Pending results at discharge: No Medications # of Antipsychotic meds at D/C: 2 Appropriate >1 Antipsych meds?: 4 Approp Antipsych med options 1 - Minimum of three failed multiple trials of monotherapy. 2 - Documented plan to taper to monotherapy due to previous use of multiple meds OR cross-taper in progress at D/C. 3 - Documentation of augmentation of Clozapine. 4 - Justification other than those listed in allowable values 1-3, document here : Required multiple antipsychotics for control of reported symptoms. Discharge Discharge Date: Aug 19, 2017 Discharge Diagnosis: (1) Suspected malingering Diagnosis: Principal (2) Schizophrenia Diagnosis: Secondary (stabilized) ICD Code: F20.9 - Schizophrenia, unspecified Pt Condition on Discharge: Stable Discharge Disposition: Discharge Home Discharge Instructions Diet Instructions: As Tolerated, No Restrictions Activities you can perform: Weight Bearing as [place] Scheduled Appointment: Hai Tolbert Appointment Date: Aug 20, 2017 Appointment Time: 10:00 New Orders: CBC WITH DIFF - 1 Week New Medications: Aripiprazole (Aripiprazole) 5 Mg Tab 5 MG PO DAILY for Mental Health for 5 Days, #5 TAB 5 Refills Fluphenazine (Fluphenazine) 10 Mg Tab 25 MG PO Q12HR for Mental Health for 5 Days, TAB 5 Refills Discontinued Medications: Fluphenazine (Fluphenazine) 10 Mg Tab 20 MG PO BID Discharge Time > 30 minutes Mental Status Examination Appearance: Appropriate Consciousness: Alert Orientation: x4 Motor Activity: Other (No motor abnormalities noted) Speech: Unremarkable Language: Adequate Fund of Knowledge: Adequate Attention and Concentration: Adequate Memory: Unremarkable Mood: Appropriate Affect: Appropriate Thought Process & Associations: Intact, Logical, Goal directed, Linear Thought Content: Appropriate Hallucination Type: Auditory (Reports noncommand auditory hallucinations. Once again does not appear internally stimulated.) Delusion Type: None Suicidal Ideation: No Suicidal Plan: No Suicidal Intention: No Homicidal Ideation: No Homicidal Plan: No Homicidal Intention: No Mental Status Exam Remarks Insight and judgment are fair Discharge/Advance Care Plan Health Problems: (1) Schizophrenia Goals to promote your health * To prevent worsening of your condition and complications * To maintain your health at the optimal level Directions to meet your goals Take your medications as prescribed Follow your dietary instruction Follow activity as directed Keep your appointments as scheduled Take your immunizations and boosters as scheduled If your symptoms worsen call your PCP, if no PCP go to Urgent Care Center or Emergency Room For 03/12 questions related to your inpatient stay or results of tests pending at discharge, please contact Dr. Carmelo Han at Smoking is Dangerous to Your Health. Avoid second hand smoking Problem Qualifiers (1) Schizophrenia: Qualified Codes: F20.3 - Undifferentiated schizophrenia Carmelo Han MD Aug 19, 2017 10:53
== END 2017-08-19 12:45 | disposition home or self-care (01) | DRG 885 ==
LOC: NEPE 20:40 → NEDA 08-14 10:49 → H260 08-14 12:15 → H270 08-15 11:30
PROVIDERS: ADMIT Psychiatry & Neurology Psychiatry; ATTEND Psychiatry & Neurology Psychiatry
DX: F20.9 Schizophrenia, unspecified (principal); Z76.5 Malingerer [conscious simulation]
CPT/HCPCS: 71045; 80048; 80053; 80061; 80307; 82550; 82552; 83036; 83690; 83735; 84443; 84484; 85025; 85610; 85730; 93005